=== PATIENT | male | born 1960 ===

== ENCOUNTER 2018-09-01 13:15 | Inpatient (IN) | payer OTHER ==
[~2018-09-01] VITALS: Ht 182.9 cm; Wt 95.3 kg
[2018-09-01] MEDS ORDERED: NORVASC5 MG PO (16:26)
[2018-09-08] MEDS ORDERED: AMOX-CLAV 875-1 EACH PO (09:52)
[2018-09-08] MEDS ORDERED: NEURONTIN800 MG PO (09:52)
[2018-09-08] MEDS ORDERED: PERCOCET 5-3251 EACH PO (09:52)
[2018-09-08] MEDS ORDERED: CLONAZEPAM0.5 MG PO (09:52)
[2018-09-08] MEDS ORDERED: COLACE100 MG PO (09:52)
== END 2018-09-09 19:56 | disposition home or self-care (01) | DRG 460 ==
LOC: SURH 09-08 05:10 → O/R 09-08 05:10 → SURH 09-08 10:15
PROVIDERS: ADMIT Orthopaedic Surgery Orthopaedic Surgery of the Spine
PROC: 0SG30AJ Fusion of Lumbosacral Joint with Interbody Fusion Device, Posterior Approach, Anterior Column, Open Approach (ICD-10-PCS; 2018-09-08)
PROC: 0ST40ZZ Resection of Lumbosacral Disc, Open Approach (ICD-10-PCS; 2018-09-08)
PROC: 07DS3ZZ Extraction of Vertebral Bone Marrow, Percutaneous Approach (ICD-10-PCS; 2018-09-08)
PROC: 00NY0ZZ Release Lumbar Spinal Cord, Open Approach (ICD-10-PCS; principal; 2018-09-08 10:15)
DX: M47.27 Other spondylosis with radiculopathy, lumbosacral region (principal); M51.17 Intervertebral disc disorders with radiculopathy, lumbosacral region